=== PATIENT | male | born 1955 | race Caucasian/White ===

== ENCOUNTER 2018-11-20 15:31 | Emergency (ER) | payer BC, OTHER ==
[~2018-11-20] VITALS: Ht 177.8 cm; Wt 122.5 kg
[2018-11-20 15:55] VITALS: BP 140/74
== END 2018-11-20 17:49 | disposition home or self-care (01) ==
LOC: ER 15:34
DX: S80.212A Abrasion, left knee, initial encounter (principal); S80.211A Abrasion, right knee, initial encounter; M10.072 Idiopathic gout, left ankle and foot; I10 Essential (primary) hypertension; V28.4XXA Motorcycle driver injured in noncollision transport accident in traffic accident, initial encounter; Y93.55 Activity, bike riding; Y99.8 Other external cause status; Y92.488 Other paved roadways as the place of occurrence of the external cause
CPT/HCPCS: 73630